=== PATIENT | male | born 1980 | race American Indian/Alaskan Native ===

== ENCOUNTER 2021-08-23 19:35 | Emergency (ER) | payer SELFPAY ==
[2021-08-23] MEDS ORDERED: SODIUM CHLORIDE 0.9% 1000 ML 1,000 ML IV ONE (20:58)
[2021-08-23 21:30] LABS: Basophils % (Auto) 0.3 % (0.0-1.8); Eosinophils % (Auto) 0.1 % (0.0-4.3); Hematocrit 47.9 % (35.5-45.6); Hemoglobin 15.6 gm/dl (11.8-15.2); Lymphocytes # (Auto) 1.6 K/mm3 (1.2-5.4); Lymphocytes % (Auto) 11.4 % (13.4-35.0); Mean Corpuscular HGB Conc 33 % (32-34); Mean Corpuscular Volume 97 fl (84-94); Monocytes # (Auto) 0.7 K/mm3 (0.0-0.8); Monocytes % (Auto) 5.2 % (0.0-7.3); Platelet Count 231 K/mm3 (140-440); Red Blood Count 4.93 M/mm3 (3.65-5.03); Red Cell Distribution Width 14.4 % (13.2-15.2)
[2021-08-23 21:47] LABS: BUN/Creatinine Ratio 10; Blood Urea Nitrogen 13 mg/dL (9-20); Calcium 9.2 mg/dL (8.4-10.2); Hemolysis Index 9
[2021-08-23 22:25] LABS: Amphetamine Screen,Urine PRESUMPTIVE NEGATIVE; Benzodiazepines Screen,Urine PRESUMPTIVE NEGATIVE; Cannabinoid Screen,Urine PRESUMPTIVE NEGATIVE; Cocaine Screen,Urine PRESUMPTIVE NEGATIVE; Methadone Screen,Urine PRESUMPTIVE NEGATIVE; Opiate Screen,Urine PRESUMPTIVE NEGATIVE
--- NOTE | 2021-08-23 22:56 | Emergency Department Report ---
HPI - General Chief Complaint: Overdose Time Seen by Provider: 08/23/21 20:44 - HPI HPI: 41-year-old male with history of bipolar disorder on Risperdal is brought in by EMS after suspected heroin overdose. According to the EMS report, the patient was found unresponsive in his car by his girlfriend. 911 was called and when they arrived he was unresponsive and with agonal respirations. He was given 0.4 mg of Narcan intranasally and then 0.4 mg of Narcan IV and immediately became responsive. According to the EMS report he admitted to snorting heroin. When I spoke with the patient, he denies snorting heroin. He says that he did drink 2 beers today but denies use of any other substances other than his prescribed Risperdal. He is unable to explain why he was found unresponsive and became responsive after being administered the antidote for opiate overdose. He denies suicidal ideation/homicidal ideation as well as auditory/visual hallucinations. He denies any physical symptoms or complaints at this time but states he feels anxious and wants to go home soon. ED Past Medical Hx - Past Medical History Previous Medical History?: Yes Hx Psychiatric Treatment: Yes Additional medical history: Bipolar/Schizoaffective disorder, Sciatica - Surgical History Past Surgical History?: Yes Additional Surgical History: Spine surgery - Social History Smoking Status: Current Every Day Smoker Substance Use Type: Alcohol ED Review of Systems ROS: Stated complaint: OPIOD OVERDOSE Other details as noted in HPI Comment: All other systems reviewed and negative Constitutional: denies: chills, fever Eyes: denies: eye pain, vision change ENT: denies: throat pain, congestion Respiratory: denies: cough, shortness of breath Cardiovascular: denies: chest pain, palpitations Gastrointestinal: denies: abdominal pain, nausea, vomiting Genitourinary: denies: dysuria, discharge Musculoskeletal: denies: back pain, arthralgia Skin: denies: rash, lesions Neurological: denies: headache, weakness, numbness Psychiatric: denies: auditory hallucinations, visual hallucinations, homicidal thoughts, suicidal thoughts Physical Exam - Physical Exam Vital Signs: Vital Signs 08/23/21 20:20 Temperature 97.9 F Pulse Rate 102 H Respiratory 16 Rate Blood Pressure 138/94 [Left] O2 Sat by Pulse 97 Oximetry Physical Exam: GENERAL: Well developed and well nourished. No acute distress HEAD: Normocephalic. No obvious signs of trauma. ENT: Very dry mucous membranes. EYES: Extraocular movements are intact. Pupils are equal round and reactive to light bilaterally NECK: Supple. Full ROM is intact. Trachea is midline. LUNGS: Nonlabored breathing. Equal chest rise bilaterally. Clear to auscultation bilaterally. CARDIOVASCULAR: Regular rate and rhythm. No murmurs or rubs. VASCULAR: Cap refill < 2 seconds ABDOMEN: Abdomen is slightly distended but soft and nontender. There is no guarding or rebound. SKIN: Skin is warm and dry NEURO: Patient is awake, alert, and oriented. jukebox checker II-XII grossly intact. No focal deficits. Normal motor and sensory exam throughout. Normal speech. MUSCULOSKELETAL: No obvious deformities. No significant tenderness. Normal ROM throughout. BACK/SPINE: No midline tenderness or step-offs of the C/T/L spine. No costovertebral angle tenderness. ED Course Vital Signs 08/23/21 20:20 Temperature 97.9 F Pulse Rate 102 H Respiratory 16 Rate Blood Pressure 138/94 [Left] O2 Sat by Pulse 97 Oximetry ED Medical Decision Making - Lab Data Result diagrams: 08/23/21 21:06 08/23/21 21:06 - Medical Decision Making 41-year-old male brought in by EMS after presumed heroin/opiate overdose after being found unresponsive in his car by his girlfriend and becoming responsive/alert/oriented after being administered Narcan by EMS. Patient denies use of any opiates or other substances to me with the exception of drinking alcohol. He is afebrile and with normal vitals other than mildly elevated heart rate and blood pressure. Physical examination reveals dry mucous membranes but no other significant abnormalities. He is alert and oriented and has a nonfocal neurologic exam. Lungs are clear to auscultation. Given that the patient denies substance use we will perform work-up with labs and give IV fluids for rehydration. We will continue to observe and administer further Narcan if necessary. Labs reveal leukocytosis of 14.5 with elevated hemoglobin of 15.6. Creatinine is slightly elevated at 1.3 but his baseline is unknown. I suspect that his leukocytosis and elevated hemoglobin are related to hemoconcentration from volume depletion, as well as possible stress leukocytosis from the episode which brought him in today. The patient's heart rate is improved. Prior to finishing IV fluids, however, the patient reported he wanted to leave AMA. He is of A & O x 4 and of sound mind to make decisions for himself. He understands that leaving AGAINST MEDICAL ADVICE confers significant risk of temporary/permanent disability and . I explained to him that Narcan can wear off and result in overdose/respiratory failure/. He demonstrated understanding of these risks and still wants to leave AMA. Critical care attestation.: If time is entered above; I have spent that time in minutes in the direct care of this critically ill patient, excluding procedure time. ED Disposition Clinical Impression: Opiate overdose, Dehydration Disposition: 07 LEFT AGAINST MEDICAL ADVICE Is pt being admited?: No Referrals: PRIMARY CARE, [Primary Care Provider] - 3-5 Days
[2021-08-24] VITALS: BP 140/86
== END 2021-08-23 23:59 | disposition left against medical advice (07) ==
LOC: ED 19:35
DX: T40.601A Poisoning by unspecified narcotics, accidental (unintentional), initial encounter (principal); E86.0 Dehydration; F31.9 Bipolar disorder, unspecified; F25.9 Schizoaffective disorder, unspecified; Z98.890 Other specified postprocedural states; F17.200 Nicotine dependence, unspecified, uncomplicated; Y92.89 Other specified places as the place of occurrence of the external cause
CPT/HCPCS: 36415; 80048; 80307; 84484; 85025; 96360; 99284; J7030; 80320; Q0162; G0480